=== PATIENT | male | born 1970 | race Caucasian/White ===

== ENCOUNTER 2024-08-26 17:05 | Emergency (ER) | payer BC, SELFPAY ==
[2024-08-26 17:07] VITALS: BP 136/89
[2024-08-26 17:22] LABS: % Basophils 0.7 % (0-2); % Eosinophils 3.3 % (0-6); % Immature Granulocytes 0.7 % (0-0.5); % Lymphocytes 27.8 % (20.5-51.1); % Neutrophils 58.5 % (42.2-75.2); Absolute Eosinophils 0.2 10^3/uL (0-0.7); Absolute Lymphocytes 1.7 10^3/uL (1.2-3.4); Absolute Monocytes 0.5 10^3/uL (0.1-0.6); Absolute Neutrophils 3.5 10^3/uL (1.4-6.5); Hematocrit 41.8 % (39.0-52.0); Hemoglobin 14.7 g/dL (13.0-18.0); Mean Corp Hgb Conc. 35.2 g/dL (33.0-37.0); Mean Corpuscular Volume 88.2 fL (80.0-94.0); Nucleated Red Blood Cells % 0 % (-); Platelet Count 191 10^3/uL (130-400); Red Blood Cell Count 4.74 10^6/uL (4.70-6.10); Red Cell Dist. Width 12.8 % (11.5-14.5)
[2024-08-26 17:39] LABS: ALT (SGPT) 48 U/L (0-50); AST (SGOT) 45 U/L (17-59); Albumin 4.7 g/dl (3.5-5.0); Alkaline Phosphatase 51 U/L (38-126); Blood Urea Nitrogen 22 mg/dl (9-20); Calcium 9.8 mg/dl (8.4-10.2); Carbon Dioxide 29 mmol/L (22-30); Glucose 84 mg/dl (70-99); Potassium 5.1 mmol/L (3.5-5.1); Sodium 143 mmol/L (135-145); Total Bilirubin 0.2 mg/dl (0.2-1.3); Total Protein 7.2 g/dl (6.3-8.2); eGFR 59.73
[2024-08-26 17:55] LABS: Chloride 104 mmol/L (98-107)
[2024-08-26 18:38] VITALS: BMI 33.3
--- NOTE | 2024-08-26 19:29 | ED.GENMED ---
History of Present Illness
General
Chief Complaint: Back Pain
Source: patient and spouse
Exam Limitations: none
Time Seen by Provider: 08/26/24 19:02
Nursing documentation reviewed up to this point in time: agreed with
History of Present Illness
History of Present Illness:
54 yo male w/o any clinically significant PMHX presents stating for past 4 days has had gradually increasing L lower back pain. Pain comes and goes, when the 'spasms' come, it's 10/10. Gets spasms frequently throughout the day. Has taken Tylenol
with no relief. Denies fever/chills. Denies n/v/abdominal pain. Denies burning, frequency, urgency, hematuria.
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 Drives 1.5 hours to work and back.
Past History
Past History
ED Past Medical History: Other (back pain, remote history DVT, PE, not anticoagulated)
ED Past Surgical History: Orthopedic (L hip surgery)
Social History
Tobacco: Former smoker
Alcohol: Former
Drug: None
Personal:
Living: with family
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
Family History
Family History: Other
Review of Systems
Review of Systems
Allergies reviewed?: Yes
All Other Systems: ROS reviewed and negative except as documented in HPI and ROS
Constitutional: Denies fever or chills
Respiratory: Denies trouble breathing
Cardiac: Denies chest pain
ABD/GI: Denies abdominal pain or nausea
: Reports flank pain (left); Denies dysuria, frequency, difficulty voiding, urgency, bleeding or dark urine
Musculoskeletal: Reports back pain (left lower back)
Skin: Reports no symptoms
Neurological: Reports no symptoms
Phy Exam
Physical Exam
Physical Exam:
GENERAL: No acute distress. A&Ox3.
CONSTITUTIONAL: Afebrile.
EYES: clear, conjunctivae normal
ENMT: moist mucus membranes, Pharynx nl
RESPIRATORY: Regular respirations, nonlabored, lungs clear.
CARDIOVASCULAR: Regular rate and rhythm, no murmurs, no rubs.
GI: Soft, nontender, normal BS
MUSCULOSKELETAL: Unable to reproduce pain with palpation. Moving with ease now, no significant pain. Well perfused.
SKIN: Warm, dry, pink
PSYCH: Normal mood and affect. Well kept, interactive and appropriate
NEUROLOGIC: Awake, alert and oriented. No focal neurological deficits
Course
Orders/Labs/Results
Orders:
Orders
08/26/24 17:14
Complete Blood Count/With Diff Urgent
Comprehensive Metabolic Panel Urgent
08/26/24 19:26
Urinalysis Reflex To Culture Urgent
Date Specimen was Collected: 08/26/24
Time Specimen was Collected: 19:23
08/26/24 19:32
0.9% Sodium Chloride 1000 ml [Nss] 1,000 ml IV BOLUS
Ketorolac [Toradol] 15 mg IV NOW STA
08/26/24 19:33
CT Abd/pel Without Iv Or Oral Urgent
Comment:
Reason For Exam: L flank pain
08/26/24 20:49
Dexamethasone Sod Phosphate [Decadron] 10 mg IV NOW STA
Diazepam [Valium] 5 mg PO NOW STA
Abnormal Lab Results
08/26/24
17:14
Immature Gran % 0.7 H %
(0-0.5)
BUN 22 H mg/dl
(9-20)
Creatinine 1.4 H mg/dL
(0.7-1.3)
08/26/24 17:14
08/26/24 17:14
Vital Signs
Initial and Last Documented VS:
Initial Vital Signs
Temp Pulse Resp BP Pulse Ox
97.9 F 90 16 136/89 98
08/26/24 17:07 08/26/24 17:07 08/26/24 17:07 08/26/24 17:07 08/26/24 17:07
Last Documented Vital Signs
Temp Pulse Resp BP Pulse Ox
97.9 F 90 16 136/89 98
08/26/24 17:07 08/26/24 17:07 08/26/24 17:07 08/26/24 17:07 08/26/24 17:07
MDM/Problems Addressed
Differential Diagnosis Includes:
kidney/ureteral stone, UTI, musculoskeletal low back strain
MDM/Problems Addressed:
54 yo male w/o any clinically significant PMHX presents stating for past 4 days has had gradually increasing L lower back pain. Pain comes and goes, when the 'spasms' come, it's 10/10. Gets spasms frequently throughout the day. Has taken Tylenol
with no relief. Denies fever/chills. Denies n/v/abdominal pain. Denies burning, frequency, urgency, hematuria.
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 Drives 1.5 hours to work and back.
Afebrile, NAD
CBC: Normal
CMP: BUN/creat mildly elevated. IVF's ordered, otherwise normal.
U/A neg
8:40 PM: CT abdomen pelvis
Radiology report reviewed: IMPRESSION: No acute pathology of the abdomen nor pelvis identified.
Moderate fecal material in the colon.
Hepatic fatty infiltration.
Left adrenal nodule. Likely benign. This would better be evaluated by a nonurgent MRI imaging.
Nodule discussed with patient and he was given copy of his CT report
Final diagnosis musculoskeletal low back pain, mild dehydration
Rx for Flexeril and Prednisone sent to pt pharmacy
*Critical Care Note
Total Time (30-74mins, 75-104mins- exclusive of procedures): Not Applicable
ED Attending Note
-
Portions of this chart may have been created with voice recognition software.� Occasional wrong word or��sound alike� substitutions may have occurred due to the inherent limitations of voice recognition software.
Discharge Plan
Departure
Patient Disposition: Home (Routine Discharge)
Date of Disposition: 08/26/24
Time of Disposition: 20:51
Patient with high blood pressure during this ER visit?: No
Condition: Good
Discharge Problem:
Mild dehydration, Low back pain
Instructions: Low Back Pain (DC), Dehydration, Adult ED
Prescriptions:
New
cyclobenzaprine 10 mg tablet
10 mg PO TID PRN (Reason: back pain/spasms) Qty: 30 0RF
prednisone 10 mg Tablet
See Rx Instructions .ROUTE .COMPLEX Qty: 30 0RF
Rx Instructions:
Take By Mouth:
40 mg daily x3 days, 30 mg daily x3 days,
20 mg daily x3 days, 10 mg daily x3 days.
No Action
hydrocodone-acetaminophen 5 MG/500 MG tablet
1 tab PO .Q4-6HPRN PRN (Reason: PAIN) Qty: 20 0RF
cyclobenzaprine 10 MG tablet
10 mg PO TIDPRN PRN (Reason: spasm) Qty: 10 0RF
rivaroxaban [Xarelto] 15 MG tablet
15 mg PO BID Qty: 42 0RF
Rx Instructions:
15 mg twice a day for the first 21 days
Xarelto 20 mg tablet
20 mg PO DAILY Qty: 30 0RF
Xarelto 15 mg tablet
15 mg PO BID Qty: 42 0RF
Referrals:
Humberto Gil, DO [Family Provider] - Follow up in 5-7 days
Activity Restrictions/Additional Instructions:
As we discussed, I sent a prescription to your pharmacy for Flexeril for muscle relaxant and also prednisone, a steroid to reduce the inflammation. You may also take ibuprofen 600 mg, with food, every 8 hours as needed for pain
Flexeril can make you sleepy and slow the reflexes so do not drive or operate any machinery within 8 hours of taking it.
Heating pad may help
Please discuss your CT result with your doctor as there is an incidental nodule on the left adrenal gland.
Interventions
Interventions:
*Risk Screen - Suicide Last Done: 08/26/24 18:38
*General Assessment Last Done: 08/26/24 18:38
*Neglect/Abuse Screening Last Done: 08/26/24 18:38
ED- Fall Risk Assessment Last Done: 08/26/24 18:38
*ED COVID-19 Vaccine History Last Done: 08/26/24 18:38
ED-Musculoskeletal Assessment Last Done: 08/26/24 18:38
Discharge Date and Time
Print Language: MONEGASQUE
[2024-08-26 19:36] LABS: Urine Albumin Negative (Neg - Trace); Urine Bilirubin Negative (Negative); Urine Character Clear (Clear); Urine Color Yellow; Urine Glucose Negative (Negative); Urine Ketone Negative (Negative); Urine Leukocyte Negative (Negative); Urine Nitrite Negative (Negative); Urine Occult Blood Negative (Negative); Urine Urobilinogen Negative (Neg - 1+); Urine pH 6.5 (5.0-9.0)
[2024-08-26] MEDS: TORADOL 15 MG IV (19:56)
[2024-08-26] MEDS: NSS 1000 IV (19:57)
[2024-08-26] MEDS: DECADRON 10 MG IV (21:00)
[2024-08-26] MEDS: VALIUM 5 MG PO (21:00)
[2024-08-26 21:08] VITALS: BP 119/76
== END 2024-08-26 21:09 | disposition home or self-care (01) ==
LOC: EMR 17:05
PROVIDERS: Emergency Medicine; Registered Nurse; EMERGENCY PHYSICIAN Student in an Organized Health Care Education/Training Program; FAMILY PHYSICIAN Family Medicine
DX: M54.50 Low back pain, unspecified (principal); M62.830 Muscle spasm of back; R10.9 Unspecified abdominal pain; E86.0 Dehydration; K76.0 Fatty (change of) liver, not elsewhere classified; F32.A Depression, unspecified; Z86.718 Personal history of other venous thrombosis and embolism; Z86.711 Personal history of pulmonary embolism; Z87.891 Personal history of nicotine dependence
CPT/HCPCS: 99284; 96374; 96375; 96361; 74176; 80053; 81003; 85025

== ENCOUNTER → 2024-09-22 14:51 | Outpatient (REF) | payer BC, SELFPAY | LOC: RAD 14:51 | PROVIDERS: ATTENDING PHYSICIAN Family Medicine | DX: I82.502 Chronic embolism and thrombosis of unspecified deep veins of left lower extremity (principal) | CPT/HCPCS: 93970 ==

== ENCOUNTER → 2025-03-27 12:21 | Outpatient (REF) | payer BC, SELFPAY | LOC: RAD 12:21 | PROVIDERS: ATTENDING PHYSICIAN Student in an Organized Health Care Education/Training Program | DX: M79.674 Pain in right toe(s) (principal) | CPT/HCPCS: 73630 ==

== ENCOUNTER → 2025-05-04 12:26 | Outpatient (REF) | payer BC, SELFPAY | LOC: RAD 12:26 | PROVIDERS: ATTENDING PHYSICIAN Student in an Organized Health Care Education/Training Program; FAMILY PHYSICIAN Family Medicine | DX: M79.651 Pain in right thigh (principal); I83.893 Varicose veins of bilateral lower extremities with other complications; Z86.718 Personal history of other venous thrombosis and embolism | CPT/HCPCS: 93971 ==